=== PATIENT | female | born 1965 | race Caucasian/White ===

== ENCOUNTER 2022-03-17 02:58 | Inpatient (IN) ==
[2022-03-17] MEDS ORDERED: SODIUM CHLORIDE 0.9% 1000ML 500 ML IV ONE (03:20)
[2022-03-17] MEDS ORDERED: ONDANSETRON INJ 2 MG/ML 2 ML VIAL IV STA (03:20)
[2022-03-17] MEDS ORDERED: MoRPHine SULFATE 4 MG/ML 1 ML CARP\\VIAL IV STA ×2 (03:20→04:07)
--- NOTE | 2022-03-17 03:21 | Emergency Department Note ---
Impression & Plan Kidney stone ADMIT ED Provider Note HPI: The patient is a 56-year-old female who presents the emergency department the chief complaint of cute onset left flank pain that began about 3 hours prior to arrival to the ED. Patient states pain is relatively severe at times, she has had some nausea and vomiting. Patient states that this does feel similar to pain that she has had in the past with kidney stones. On arrival to the ED the patient is hemodynamically stable, she is in moderate distress secondary to pain on my initial assessment. ROS: -: L flank pain *10 point review systems was conducted and is otherwise negative unless stated above *Outpatient medications and allergy history reviewed PE: General: Alert, mild distress secondary to pain HEENT: Normocephalic, atraumatic Eyes: Extraocular eye movement is intact, no scleral erythema Pulmonary: Clear to auscultation bilaterally, no wheezing Cardio: Regular rate and rhythm GI: Abdomen is soft, nontender : No suprapubic tenderness, there is left flank tenderness to palpation MSK: No evidence of trauma or malformation of the extremities, no edema Skin: No evidence of rash Neuro: Alert, no focal deficits 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 Additional nonobstructing left renal calcifications. No other renal or ureteral calculi. Urinary bladder is unremarkable. OTHER FINDINGS: Normal ultrasound 06/02/2020. Small hiatal hernia. No bowel obstruction or ileus. Abundant stool throughout the colon. Appendix not identified. No secondary evidence for appendicitis. No evidence for diverticulitis. No free fluid. Liver is unremarkable. Gallbladder unremarkable without gallstones. No biliary ductal dilation. Pancreas is unremarkable. Spleen is unremarkable. Uterus is grossly unremarkable. Ovaries are not identified. Radiologist: Ascencion Alaniz M.D. Medical Decision Making: The patient is a 56-year-old female who presented to the emergency department chief complaint of cute onset left flank pain as well as nausea, patient stated pain felt similar to pain she has had in the past associated with kidney stones. CT imaging of the abdomen pelvis was obtained that shows evidence of a 6.4 mm obstructing calculus at the left UPJ with mild left hydronephrosis. Urinalysis shows blood and is positive for leukocyte Estrace, nitrite negative. There is pyuria but also evidence of contamination. We will send for urine culture, will also add blood cultures. Patient does have a mild leukocytosis, she will be started prophylactically on ciprofloxacin given her multiple antibiotic allergies. On my reassessment following 2 doses of morphine patient states her pain is improved but she is somewhat drowsy appearing. Discussed options and given the size of the stone and the patient's need for redosing of pain medication here in the ED, she will be admitted with urology consultation for further management. Case was discussed with on-call urology midlevel provider, Tanner Alfaro PA-C, recommended admission to medicine and urology consultation for the patient to be seen later this morning. Patient was in agreement to this plan, she was also given a dose of Toradol prior to admission. Patient was admitted in stable condition. [facility] Hospitalist service was consulted for admission. Diagnosis: 1. Kidney stone, left-sided, with hydronephrosis and obstruction 2. Urinary tract infection 3. Leukocytosis Disposition: Admission Zach Salas DO Emergency Medicine Past Med/Surg History Medical History (Updated 03/17/22 @ 05:34 by Zach Salas DO) Colon polyp Follicular thyroid cancer s/p thyroidectomy Heart trouble History of meningioma of the brain s/p gamma knife therapy Menopausal symptoms Status post stereotactic radiosurgery Urethral cyst Surgical History (Updated 02/24/20 @ 12:44 by Nica Salinas) History of subtotal thyroidectomy History of surgery on wrist Hx of breast biopsy Hx of colonoscopy Hx of knee surgery Hx of tonsillectomy Family History (Updated 06/15/20 @ 14:05 by Carolynn Rubio MD) Father Diabetes Hypertension Colorectal cancer questionable colon biopsies on colonoscopy Grandmother (Maternal) Diabetes Breast cancer Grandfather (Paternal) Malignant neoplasm of skin Prostate cancer Denies family history of Ovarian cancer Clotting disorder Uterine cancer Social History (Updated 02/24/20 @ 12:40 by Nica Salinas) Smoking Status: Never smoker Feels Safe at Home: Yes Allergies Allergies Allergy/AdvReac Type Severity Reaction Status Date / Time bacitracin [From Polysporin] Allergy RASH Verified 12/13/21 12:50 doxycycline Allergy Nausea & Verified 12/13/21 12:50 Vomitting erythromycin base Allergy Verified 12/13/21 12:50 fexofenadine [From Erika] Allergy Verified 12/13/21 12:50 hyoscyamine Allergy Rash Verified 12/13/21 12:50 iodine Allergy Verified 12/13/21 12:50 latex Allergy Verified 12/13/21 12:50 Penicillins Allergy Verified 12/13/21 12:50 polymyxin B [From Polysporin] Allergy RASH Verified 12/13/21 12:50 pseudoephedrine Allergy Verified 12/13/21 12:50 [From Erika-D] soy Allergy Verified 12/13/21 12:50 sulfamethoxazole Allergy RASH Verified 12/13/21 12:50 [From Bactrim] trimethoprim [From Bactrim] Allergy RASH Verified 12/13/21 12:50 milk AdvReac "Makes her Verified 12/13/21 12:50 sick" Home Meds Home Medications Medication Instructions Recorded Confirmed albuterol sulfate 2.5 mg/3 mL 2.5 mg inhalation Q4H PRN 10/24/21 12/13/21 (0.083 %) solution for nebulization albuterol sulfate 90 mcg/actuation 2 puff inhalation Q6H PRN 10/24/21 12/13/21 aerosol inhaler bupropion HCl 150 mg 24 hr tablet, 150 mg PO QAM 10/24/21 12/13/21 extended release econazole 1 % topical cream 1 applic topical DAILY 10/24/21 12/13/21 epinephrine 0.3 mg/0.3 mL 0.3 mg IM Q4H PRN 10/24/21 12/13/21 injection, auto-injector (EpiPen) levothyroxine 175 mcg tablet 175 mcg PO DAILY 10/24/21 12/13/21 (Synthroid) liothyronine 5 mcg tablet 5 mcg PO DAILY 10/24/21 12/13/21 metoprolol tartrate 25 mg tablet 25 mg PO DAILY 10/24/21 12/13/21 metronidazole 500 mg tablet 500 mg PO DAILY 10/24/21 12/13/21 ondansetron HCl 4 mg tablet 4 mg PO Q6H 10/24/21 12/13/21 Previous Rx's Medication Instructions Recorded azelastine 137 mcg (0.1 %) nasal 2 spray intranasal DAILY #30 mL 12/13/21 spray aerosol Results & Data (ED) Vital Signs Vital Signs - 24 hr 03/17/22 03:07 03/17/22 03:19 03/17/22 03:01 Temperature 37 C Temperature Source Temporal Artery Scan Pulse Rate 71 Respiratory Rate 20 Respiratory Effort / Characteristics Non-Labored Spontaneous Non-Labored Respiratory Depth Normal Normal Blood Pressure 141/73 H Blood Pressure Mean 95 Blood Pressure Position Sitting Pulse Oximetry 97 98 Oxygen Delivery Method Room Air Sepsis Recent Fever Within 48 Hours No Sepsis New/Unexplained Change in Mental Status N/A Sepsis Action Taken by Nursing No Action Required Laboratory Data Result diagrams: 03/17/22 03:25 03/17/22 03:25 Lab Results 03/17/22 03/17/22 03/17/22 Range/Units 03:25 03:25 03:25 WBC 11.14 H (4.8-10.8) K/ul RBC 4.32 (3.93-5.22) M/uL Hgb 12.6 (12.0-16.0) g/dl Hct 36.9 (34.1-44.9) % MCV 85.4 (80.0-100.0) fL MCH 29.2 (25.0-34.0) pg MCHC 34.1 (32.0-36.0) g/dL RDW Std Deviation 37.1 (36.4-46.3) fL RDW Coeff of Sulaiman 11.9 (11.5-14.5) % Plt Count 400 (130-400) K/uL MPV 9.6 (9.4-12.3) fL Immature Gran % (Auto) 0.3 % Neut % (Auto) 68.2 % Lymph % (Auto) 24.2 % [place] % (Auto) 6.3 % Eos % (Auto) 0.6 % Baso % (Auto) 0.4 % Neut # (Auto) 7.60 H (1.4-6.5) K/uL Lymph # (Auto) 2.70 (1.2-3.4) K/uL [place] # (Auto) 0.70 (0.24-0.82) K/uL Eos # (Auto) 0.07 (0-0.50) K/uL Baso # (Auto) 0.04 (0-0.2) K/uL Immature Gran # (Auto) 0.03 H (0.00-0.02) K/uL Sodium 137 (136-145) mmol/L Potassium 3.4 L (3.5-5.1) mmol/L Chloride 104 (98-107) mmol/L Carbon Dioxide 23 (21-32) mmol/L Anion Gap 10 (3-11) BUN 14 (6-23) mg/dl Creatinine 0.93 (0.6-1.2) mg/dl Est Cr Clr Drug Dosing Not Reportable Est GFR ( Amer) 78.5 ml/min Est GFR (Non-Af Amer) 67.7 ml/min BUN/Creatinine Ratio 15.1 (10-20) Glucose 114 H (70-99(Fasting)) mg/dl Calcium 8.8 (8.5-10.1) mg/dl Total Bilirubin 0.4 (0.2-1.0) mg/dl AST 14 (13-39) U/L ALT 11 (7-52) U/L Alkaline Phosphatase 92 (34-104) U/L Total Protein 6.5 (6.0-8.3) gm/dl Albumin 4.0 (3.4-5.0) gm/dl Globulin 2.5 (2.5-4.0) gm/dl Albumin/Globulin Ratio 1.6 (0.9-2) Lipase 9 L (11-82) U/L Urine Color Yellow Urine Appearance Cloudy A (Clear) Urine pH 5.0 (4.5-7.5) Ur Specific Check 1.018 (1.000-1.030) Urine Protein 1+ H (Negative) Urine Glucose (UA) Negative (Negative) Urine Ketones Negative (Negative) Urine Blood 2+ H (Negative) Urine Nitrite Negative (Negative) Urine Bilirubin Negative (Negative) Urine Urobilinogen Negative (Negative) Ur Leukocyte Esterase 2+ H (Negative) Urine WBC (Auto) >30 H (0-5) /hpf Urine RBC (Auto) 10-30 H (0-4) /hpf U Hyaline Cast (Auto) 0 (0-5) /lpf U Epithel Cells (Auto) >30 H (0-5) /lpf Urine Bacteria (Auto) Negative (Negative) Administered Medications Discontinued Medications Sodium Chloride (Nss 1000ml) 500 mls @ 999 mls/hr IV .Q31M ONE Stop: 03/17/22 03:50 Last Admin: 03/17/22 03:37 Dose: 999 mls/hr Documented By: WESLEY Morphine Sulfate (Morphine Sulfate 4 Mg/Ml 1 Ml Carp\\Vial) 4 mg IV NOW STA Stop: 03/17/22 03:21 Last Admin: 03/17/22 03:37 Dose: 4 mg Documented By: WESLEY Morphine Sulfate (Morphine Sulfate 4 Mg/Ml 1 Ml Carp\\Vial) 4 mg IV NOW STA Stop: 03/17/22 04:08 Last Admin: 03/17/22 04:23 Dose: 4 mg Documented By: WESLEY Ondansetron HCl (Ondansetron Inj 2 Mg/Ml 2 Ml Vial) 4 mg IV NOW STA Stop: 03/17/22 03:21 Last Admin: 03/17/22 03:37 Dose: 4 mg Documented By: WESLEY Discharge Plan Visit Data Chief Complaint: Abdominal Pain Stated Complaint: KIDNEY STONE ED Provider: Zach Salas Discharge Problem: Kidney stone Patient Disposition: Admitted As Inpatient Forms Stand Alone Forms: [facility] Prescriptions Prescriptions: No Action albuterol sulfate 2.5 mg /3 mL (0.083 %) solution for nebulization 2.5 mg inhalation Q4H PRN albuterol sulfate 90 mcg/actuation HFA aerosol inhaler 2 puff inhalation Q6H PRN bupropion HCl 150 mg tablet extended release 24 hr 150 mg PO QAM econazole 1 % cream 1 applic topical DAILY epinephrine [EpiPen] 0.3 mg/0.3 mL auto-injector 0.3 mg IM Q4H PRN liothyronine 5 mcg tablet 5 mcg PO DAILY metoprolol tartrate 25 mg tablet 25 mg PO DAILY metronidazole 500 mg tablet 500 mg PO DAILY levothyroxine [Synthroid] 175 mcg tablet 175 mcg PO DAILY ondansetron HCl 4 mg tablet 4 mg PO Q6H azelastine 137 mcg (0.1 %) aerosol,spray 2 spray intranasal DAILY Qty: 30 11RF Referrals Referrals: Sabrina Thomson CRNP [Primary Care Provider] -
[2022-03-17 03:36] LABS: Basophils # (auto) 0.04 K/uL (0-0.2); Basophils % (auto) 0.4 %; Eosinophils # (auto) 0.07 K/uL (0-0.50); Eosinophils % (auto) 0.6 %; Hematocrit (blood only) 36.9 % (34.1-44.9); Hemoglobin 12.6 g/dl (12.0-16.0); Immature Granulocytes # (auto) 0.03 K/uL (0.00-0.02); Immature Granulocytes % (auto) 0.3 %; Lymphocytes % (auto) 24.2 %; Mean Corpuscular Hemoglobin 29.2 pg (25.0-34.0); Mean Corpuscular Hgb Conc 34.1 g/dL (32.0-36.0); Mean Corpuscular Volume 85.4 fL (80.0-100.0); Mean Platelet Volume 9.6 fL (9.4-12.3); Monocytes % (auto) 6.3 %; Neutrophils % (auto) 68.2 %; Platelet Count 400 K/uL (130-400); RDW Coefficient of Variation 11.9 % (11.5-14.5); RDW Standard Deviation 37.1 fL (36.4-46.3); Red Blood Count 4.32 M/uL (3.93-5.22); White Blood Count 11.14 K/ul (4.8-10.8)
[2022-03-17 03:40] LABS: Appearance Urine Cloudy (Clear); Bacteria Urine Automated Negative (Negative); Bilirubin Urine Negative (Negative); Blood Urine 2+ (Negative); Cast Urine Automated 0 /lpf (0-5); Color Urine Yellow; Epithelial Cell Urine Auto >30 /lpf (0-5); Glucose Urine UA Negative (Negative); Ketones Urine Negative (Negative); Leukocyte Esterase Urine 2+ (Negative); Nitrite Urine Negative (Negative); Protein Urine 1+ (Negative); Specific Gravity Urine 1.018 (1.000-1.030); Urobilinogen Urine Negative (Negative); WBC Urine Automated >30 /hpf (0-5)
[2022-03-17 04:01] LABS: Alanine Aminotransferase 11 U/L (7-52); Albumin Globulin Ratio 1.6 (0.9-2); Alkaline Phosphatase 92 U/L (34-104); Anion Gap 10 (3-11); Aspartate Aminotransferase 14 U/L (13-39); BUN Creatinine Ratio 15.1 (10-20); Bilirubin,Total 0.4 mg/dl (0.2-1.0); Blood Urea Nitrogen 14 mg/dl (6-23); Calcium 8.8 mg/dl (8.5-10.1); Carbon Dioxide 23 mmol/L (21-32); Chloride 104 mmol/L (98-107); Est GFR (African American) 78.5 ml/min; Est GFR (Non-African American) 67.7 ml/min; Globulin 2.5 gm/dl (2.5-4.0); Glucose 114 mg/dl (70-99(Fasting)); Lipase 9 U/L (11-82); Potassium 3.4 mmol/L (3.5-5.1); Sodium 137 mmol/L (136-145); Total Protein 6.5 gm/dl (6.0-8.3)
[2022-03-17] MEDS ORDERED: CIPROFLOXACIN / D5W 400 MG/200 ML BAG IV STA (05:26)
--- NOTE | 2022-03-17 05:45 | Urology Consultation ---
Date of Consultation March 17, 2022 Assessment & Plan (1) Kidney stone: I discussed with the treating emergency room physician and he is having the patient admitted on the hospitalist service. From a urology perspective we recommend proceeding as follows: Provide analgesics Provide antiemetics Provide IV fluid for hydration Due to concern for infected urine she has been placed empirically on ciprofloxacin. This should continue until patient's urine culture which has been sent is available and her antibiotics can be tailored further based on culture results Consideration should be given to adding Flomax for expulsive therapy Maintain n.p.o. status At the present time the patient is normotensive without tachycardia or fever. She only has a minimal leukocytosis and does not have acute kidney injury therefore an emergent urologic procedure is not required. She will be reassessed later this morning to determine if we will continue medical expulsive therapy or proceed with cystoscopy Supervising Physician Co-Signing Physician Notes Discussed patient with XOCHITL. Agree with plan. Due to concern for infected urine, patient will likely require stent placement today. She is currently stable so team will discuss stent placement later this morning with Dr. Marie. History of Present Illness Reason for Consultation: Nephrolithiasis History of Present Illness This is a 56-year-old female who presented to the emergency department secondary to left flank pain. Patient notes that she was in her usual state of health feeling fine yesterday when at approximately midnight last night she developed left-sided flank pain with some radiation to the front of her abdomen. She has had associated nausea and vomiting. She denies any fevers, shakes, or chills. The patient does note some intermittent dysuria. She denies any hematuria or urinary frequency. She says she has had kidney stones in the past but was able to pass them without any procedural intervention and thus has never had a cystoscopy or lithotripsy. 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 She says she is able to use an exercise bike several times a week without any issues. In addition the patient says that she has had a brain tumor for which she has undergone gamma knife treatment for. In the emergency department the patient was noted to have a 5.5 x 6.4 mm obstructing kidney stone (identified by CAT scan) at the left ureteropelvic junction with mild left hydronephrosis. There were some additional nonobstructing left renal calcifications. Labs include a CBC her white blood cell count was 11.1. Hemoglobin, hematocrit, and platelet count were normal. Chemistry profile showed sodium was normal. Potassium was 3.4. BUN and creatinine were both normal. Urinalysis showed cloudy appearing urine which was negative for nitrites. 2+ leukocyte esterase was noted along with greater than 30 white blood cells per high-power field. The specimen was negative for bacteria. At the time of my interview the patient was resting comfortably in bed and she was in no distress. Allergies Allergy/AdvReac Type Severity Reaction Status Date / Time bacitracin [From Polysporin] Allergy RASH Verified 12/13/21 12:50 doxycycline Allergy Nausea & Verified 12/13/21 12:50 Vomitting erythromycin base Allergy Verified 12/13/21 12:50 fexofenadine [From Erika] Allergy Verified 12/13/21 12:50 hyoscyamine Allergy Rash Verified 12/13/21 12:50 iodine Allergy Verified 12/13/21 12:50 latex Allergy Verified 12/13/21 12:50 Penicillins Allergy Verified 12/13/21 12:50 polymyxin B [From Polysporin] Allergy RASH Verified 12/13/21 12:50 pseudoephedrine Allergy Verified 12/13/21 12:50 [From Erika-D] soy Allergy Verified 12/13/21 12:50 sulfamethoxazole Allergy RASH Verified 12/13/21 12:50 [From Bactrim] trimethoprim [From Bactrim] Allergy RASH Verified 12/13/21 12:50 milk AdvReac "Makes her Verified 12/13/21 12:50 sick" Home Medications Medication Instructions Recorded Confirmed Type albuterol sulfate 2.5 mg/3 mL 2.5 mg inhalation Q4H PRN Wheezing 10/24/21 03/17/22 History (0.083 %) solution for nebulization albuterol sulfate 90 mcg/actuation 2 puff inhalation Q6H PRN Wheezing 10/24/21 03/17/22 History aerosol inhaler bupropion HCl 150 mg 24 hr tablet, 150 mg PO QAM 10/24/21 03/17/22 History extended release epinephrine 0.3 mg/0.3 mL 0.3 mg IM Q4H PRN Allergic Reaction 10/24/21 03/17/22 History injection, auto-injector (EpiPen) levothyroxine 175 mcg tablet 175 mcg PO DAILY 10/24/21 03/17/22 History (Synthroid) liothyronine 5 mcg tablet 5 mcg PO DAILY 10/24/21 03/17/22 History metoprolol tartrate 25 mg tablet 25 mg PO DAILY PRN Increased Heart 10/24/21 03/17/22 History Rate azelastine 137 mcg (0.1 %) nasal 2 spray intranasal DAILY #30 mL 12/13/21 03/17/22 Rx spray aerosol ciprofloxacin HCl 500 mg tablet 500 mg PO BID 5 days #10 tabs 03/18/22 Rx (Cipro) hydrocodone 5 mg-acetaminophen 325 1 tab PO Q6H PRN pain #15 tabs 03/18/22 Rx mg tablet oxybutynin chloride 5 mg tablet 5 mg PO BID PRN bladder pain/spasm 03/18/22 Rx #20 tabs phenazopyridine 200 mg tablet 200 mg PO TID PRN burning with 03/18/22 Rx (Pyridium) urination/bladder pain #20 tabs tamsulosin 0.4 mg capsule 0.4 mg PO QAM #30 caps 03/18/22 Rx Patient History Medical History Acquired hypothyroidism AVNRT (AV alyssa re-entry tachycardia) Colon polyp Follicular thyroid cancer s/p thyroidectomy History of meningioma of the brain s/p gamma knife therapy Left knee injury Menopausal symptoms Status post stereotactic radiosurgery Urethral cyst Surgical History History of subtotal thyroidectomy History of surgery on wrist Hx of breast biopsy Hx of colonoscopy Hx of knee surgery Hx of tonsillectomy Family History Father Diabetes Hypertension Colorectal cancer questionable colon biopsies on colonoscopy Grandmother (Maternal) Diabetes Breast cancer Grandfather (Paternal) Malignant neoplasm of skin Prostate cancer Mother , from complications after a fracture No problems noted. 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 - [employer] How many Children do You have: 1 Feels Safe at Home: Yes Assistive Devices: None Review of Systems Constitutional: no fever and no chills Eyes: + corrective lenses Ear, Nose, Mouth, Throat: no ear pain Respiratory: no cough and no dyspnea Cardiovascular: no chest pain Gastrointestinal: + abdominal pain (Radiating from left flank), + nausea and + vomiting Genitourinary: + dysuria and + flank pain (Left-sided); no urinary urgency Musculoskeletal: + back pain (Left flank) Integumentary: no rash Neurologic: no localized weakness Physical Exam Constitutional: WD/WN, vitals as above Eyes: Wears glasses ENMT: Ears: no hearing impairment and no external ear abnormality Oral mucosa are dry Neck: trachea midline Respiratory: normal respiratory effort, lungs clear to auscultation Cardiovascular: Rate/Rhythm: regular rate and regular rhythm Gastrointestinal (Abdomen): Abdomen is soft, nonrigid, nondistended. There is slight pain with palpation in the left hypogastric area as well as the left lower quadrant. No rebound tenderness or guarding. Musculoskeletal: No calf tenderness Skin: no rashes Neurologic: moves all extremities Psychiatric: A+Ox3, euthymic affect Genitourinary: + CVA tenderness (Mild CVA tenderness noted with percussion on the left side) Results & Data ([facility]) Vital Signs (Past 12 Hours) Vital Signs Temp Pulse Resp BP Pulse Ox O2 Del Method 03/17/22 03:19 98 03/17/22 03:07 37 C 71 20 141/73 H 97 Room Air PG Care Time/CCT Total # of Minutes Spent Total Time Spent with Patient: Total time spent is greater than 50% in coordination of care (as documented) at patient's floor/unit and/or counseling patient: Coding Level of Care Code 55937 Inpt Consult Level 5 Diagnoses Kidney stone N20.0
[2022-03-17] MEDS ORDERED: KETOROLAC TROMETHAMINE 15 MG/ML VIAL IV ONE (05:59)
--- NOTE | 2022-03-17 06:38 | CT Scan Report ---
CT OF THE ABDOMEN AND PELVIS WITHOUT CONTRAST CLINICAL HISTORY: Left flank pain. COMPARISON STUDY: Pelvic ultrasound June 15, 2020. Abdominal ultrasound June 02, 2020. Pelvis MRI April 24, 2019. TECHNIQUE: Axial images of the abdomen and pelvis were obtained without IV contrast. Images were revi ewed in the axial, sagittal, and coronal planes. Automated exposure control was utilized for the apryl dy. A dose lowering technique was utilized adhering to the principles of ALARA. FINDINGS: Lung bases are unremarkable. A 7 mm left ureteropelvic junction calculus results in mild to moderate left hydronephrosis. Adjacent left renal calculi measure up to 7 mm. Stranding within the l eft renal sinus and adjacent to the proximal left ureter is noted. No right sided urinary calculi are present. There is no right hydronephrosis. Evaluation of the remainder of the abdomen and pelvis is suboptimal on this unenhanced exam. There is a small hiatal hernia. Liver, spleen, adrenal glands and pancreas are unremarkable. No biliary or pancreatic ductal dilatation. No evidence for a bowel obstr uction. No lymphadenopathy or ascites. No acute fracture or suspicious lesion within visualized skele ce structures. IMPRESSION: 1. 7 mm left ureteropelvic junction calculus which results in mild to moderate left hydronephrosis. 2. Left-sided nephrolithiasis. ACT 112: Negative or not required by law. Electronically signed by: Reid Iqbal M.D. 03/17/2022 6:36 AM
--- NOTE | 2022-03-17 07:38 | History & Physical Report ---
Date of Service March 17, 2022 Assessment & Plan (1) Urinary tract obstruction by kidney stone: Plan: left-sided, 7mm, at the UPJ. patient already leaning towards wanting urological intervention. formal consult to [facility] Urology appreciated. additional nonobstructing stones on left also seen on CT. plan - * NPO except meds * copious IVF with isotonic saline * add KCL to fluids * dilaudid 0.25mg q6h prn * zofran prn * flomax 0.4mg daily, first dose now * strain all urine * u/a possibly suggestive of UTI - continue IV cipro q12h; follow urine cx * await recommendations from urology (2) AVNRT (AV alyssa re-entry tachycardia): Plan: history of. never has had ablation. takes metoprolol prn and has been previously instructed in use of carotid massage for episodes. place on telemetry. replace low K. (3) Acquired hypothyroidism: Plan: h/o thyroid cancer s/p thyroidectomy. cont synthroid. cont liothyronine. consider TSH check in am. (4) Hypokalemia: Plan: 2nd vomiting. mag level wnl. give KCL 40meq po x 1 now. add 20meq of KCL to IVF. repeat BMP am. telemetry. (5) DVT prophylaxis: Plan: low risk. ambulation. History of Present Illness Chief Complaint: left flank pain, left sided abd pain, nausea/vomiting Primary Care Provider: Sabrina Alix 56yo female with h/o AVNRT, acquired hypothyroidism, and previous kidney stones x 2 presents with severe left-sided abdominal pain and left flank pain beginning about 0030 early this am. This was associated with nausea and multiple episodes of vomiting. Some subjective fever/warmth but no rigors. Retrospectively she has had intermittent discomfort over the left flank/upper abdomen for about 2 months, with minor pain episodes occurring about every 3 days. Upon ER presentation she underwent CT abd/pelvis showing a 7mm left-sided obstructing kidney stone at the UPJ. She is more comfortable following multiple doses of morphine. Of note - she spontaneously passed 2 prior stones that were calcium based. She has never needed stents or lithotripsy. Allergies Allergy/AdvReac Type Severity Reaction Status Date / Time bacitracin [From Polysporin] Allergy RASH Verified 12/13/21 12:50 doxycycline Allergy Nausea & Verified 12/13/21 12:50 Vomitting erythromycin base Allergy Verified 12/13/21 12:50 fexofenadine [From Erika] Allergy Verified 12/13/21 12:50 hyoscyamine Allergy Rash Verified 12/13/21 12:50 iodine Allergy Verified 12/13/21 12:50 latex Allergy Verified 12/13/21 12:50 Penicillins Allergy Verified 12/13/21 12:50 polymyxin B [From Polysporin] Allergy RASH Verified 12/13/21 12:50 pseudoephedrine Allergy Verified 12/13/21 12:50 [From Erika-D] soy Allergy Verified 12/13/21 12:50 sulfamethoxazole Allergy RASH Verified 12/13/21 12:50 [From Bactrim] trimethoprim [From Bactrim] Allergy RASH Verified 12/13/21 12:50 milk AdvReac "Makes her Verified 12/13/21 12:50 sick" Home Medications Medication Instructions Recorded Confirmed Type albuterol sulfate 2.5 mg/3 mL 2.5 mg inhalation Q4H PRN Wheezing 10/24/21 03/17/22 History (0.083 %) solution for nebulization albuterol sulfate 90 mcg/actuation 2 puff inhalation Q6H PRN Wheezing 10/24/21 03/17/22 History aerosol inhaler bupropion HCl 150 mg 24 hr tablet, 150 mg PO QAM 10/24/21 03/17/22 History extended release epinephrine 0.3 mg/0.3 mL 0.3 mg IM Q4H PRN Allergic Reaction 10/24/21 03/17/22 History injection, auto-injector (EpiPen) levothyroxine 175 mcg tablet 175 mcg PO DAILY 10/24/21 03/17/22 History (Synthroid) liothyronine 5 mcg tablet 5 mcg PO DAILY 10/24/21 03/17/22 History metoprolol tartrate 25 mg tablet 25 mg PO DAILY PRN Increased Heart 10/24/21 03/17/22 History Rate azelastine 137 mcg (0.1 %) nasal 2 spray intranasal DAILY #30 mL 12/13/21 03/17/22 Rx spray aerosol Past Med/Surg History Medical History (Updated 03/17/22 @ 08:46 by Roshan Garces) Acquired hypothyroidism AVNRT (AV alyssa re-entry tachycardia) Colon polyp Follicular thyroid cancer s/p thyroidectomy History of meningioma of the brain s/p gamma knife therapy Left knee injury Menopausal symptoms Status post stereotactic radiosurgery Urethral cyst Surgical History History of subtotal thyroidectomy History of surgery on wrist Hx of breast biopsy Hx of colonoscopy Hx of knee surgery Hx of tonsillectomy Family History (Updated 03/17/22 @ 08:42 by Roshan Garces) Father Diabetes Hypertension Colorectal cancer questionable colon biopsies on colonoscopy Grandmother (Maternal) Diabetes Breast cancer Grandfather (Paternal) Malignant neoplasm of skin Prostate cancer Mother , from complications after a fracture No problems noted. 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 - [employer] How many Children do You have: 1 Feels Safe at Home: Yes Review of Systems Review of Systems: gen - subjective fever/warmth overnight, no rigors; recent appetite wnl eyes - no visual changes HENT - no dysphagia, chronic nasal symptoms CV - no chest pain pulm - no cough, no dyspnea GI - abdominal pain per HPI; +N/V; no blood in stool - no hematuria; no dysuria; +left flank pain musculo - left knee pain/swelling; wearing brace; recently saw orthopedics neuro - no headache skin - no rash endo - no diabetes Physical Exam Physical Exam: gen - pleasant, NAD eyes - PERRL HENT - mouth - MM dry neck - no JVD, no masses heart - sinus negro, s1 s2, no murmur lungs - CTA b/l abd - mild left flank and LUQ tenderness to palpation; no peritoneal signs; BS+; no HSM ext - trace edema left foot; pulses 2+ b/l skin - no rash neuro - strength 5/5 x 4 exts; DTRs 2+ b/l musculo - left knee brace in place psych - a/o x 3 Results & Data Results & Data ([facility]) Vital Signs (Past 12 Hours) Vital Signs Temp Pulse Pulse Resp BP BP Pulse Ox 03/17/22 07:00 78 16 116/62 94 03/17/22 05:00 03/17/22 03:19 98 03/17/22 03:07 37 C 71 20 141/73 H 97 O2 Del Method 03/17/22 07:00 Room Air 03/17/22 05:00 Room Air 03/17/22 03:19 03/17/22 03:07 Room Air Laboratory Results Laboratory Results - last 24 hr 03/17/22 03/17/22 03/17/22 03:25 03:25 03:25 WBC 11.14 H RBC 4.32 Hgb 12.6 Hct 36.9 MCV 85.4 MCH 29.2 MCHC 34.1 RDW Std Deviation 37.1 RDW Coeff of Sulaiman 11.9 Plt Count 400 MPV 9.6 Immature Gran % (Auto) 0.3 Neut % (Auto) 68.2 Lymph % (Auto) 24.2 [place] % (Auto) 6.3 Eos % (Auto) 0.6 Baso % (Auto) 0.4 Neut # (Auto) 7.60 H Lymph # (Auto) 2.70 [place] # (Auto) 0.70 Eos # (Auto) 0.07 Baso # (Auto) 0.04 Immature Gran # (Auto) 0.03 H Sodium 137 Potassium 3.4 L Chloride 104 Carbon Dioxide 23 Anion Gap 10 BUN 14 Creatinine 0.93 Est Cr Clr Drug Dosing Not Reportable Est GFR ( Amer) 78.5 Est GFR (Non-Af Amer) 67.7 BUN/Creatinine Ratio 15.1 Glucose 114 H Calcium 8.8 Magnesium Total Bilirubin 0.4 AST 14 ALT 11 Alkaline Phosphatase 92 Total Protein 6.5 Albumin 4.0 Globulin 2.5 Albumin/Globulin Ratio 1.6 Lipase 9 L Urine Color Yellow Urine Appearance Cloudy A Urine pH 5.0 Ur Specific [place] 1.018 Urine Protein 1+ H Urine Glucose (UA) Negative Urine Ketones Negative Urine Blood 2+ H Urine Nitrite Negative Urine Bilirubin Negative Urine Urobilinogen Negative Ur Leukocyte Esterase 2+ H Urine WBC (Auto) >30 H Urine RBC (Auto) 10-30 H U Hyaline Cast (Auto) 0 U Epithel Cells (Auto) >30 H Urine Bacteria (Auto) Negative SARS-CoV-2, RNA, NAAT 03/17/22 03/17/22 03:25 05:40 WBC RBC Hgb Hct MCV MCH MCHC RDW Std Deviation RDW Coeff of Sulaiman Plt Count MPV Immature Gran % (Auto) Neut % (Auto) Lymph % (Auto) [place] % (Auto) Eos % (Auto) Baso % (Auto) Neut # (Auto) Lymph # (Auto) [place] # (Auto) Eos # (Auto) Baso # (Auto) Immature Gran # (Auto) Sodium Potassium Chloride Carbon Dioxide Anion Gap BUN Creatinine Est Cr Clr Drug Dosing Est GFR ( Amer) Est GFR (Non-Af Amer) BUN/Creatinine Ratio Glucose Calcium Magnesium 2.0 Total Bilirubin AST ALT Alkaline Phosphatase Total Protein Albumin Globulin Albumin/Globulin Ratio Lipase Urine Color Urine Appearance Urine pH Ur Specific [place] Urine Protein Urine Glucose (UA) Urine Ketones Urine Blood Urine Nitrite Urine Bilirubin Urine Urobilinogen Ur Leukocyte Esterase Urine WBC (Auto) Urine RBC (Auto) U Hyaline Cast (Auto) U Epithel Cells (Auto) Urine Bacteria (Auto) SARS-CoV-2, RNA, NAAT NEGATIVE Diagnostic Findings Abdomen/Pelvis CT 03/17/22 03:19 CT OF THE ABDOMEN AND PELVIS WITHOUT CONTRAST CLINICAL HISTORY: Left flank pain. COMPARISON STUDY: Pelvic ultrasound June 15, 2020. Abdominal ultrasound June 02, 2020. Pelvis MRI April 24, 2019. TECHNIQUE: Axial images of the abdomen and pelvis were obtained without IV contrast. Images were reviewed in the axial, sagittal, and coronal planes. Automated exposure control was utilized for the study. A dose lowering technique was utilized adhering to the principles of ALARA. FINDINGS: Lung bases are unremarkable. A 7 mm left ureteropelvic junction calculus results in mild to moderate left hydronephrosis. Adjacent left renal calculi measure up to 7 mm. Stranding within the left renal sinus and adjacent to the proximal left ureter is noted. No right sided urinary calculi are present. There is no right hydronephrosis. Evaluation of the remainder of the abdomen and pelvis is suboptimal on this unenhanced exam. There is a small hiatal hernia. Liver, spleen, adrenal glands and pancreas are unremarkable. No biliary or pancreatic ductal dilatation. No evidence for a bowel obstruction. No lymphadenopathy or ascites. No acute fracture or suspicious lesion within visualized skeletal structures. IMPRESSION: 1. 7 mm left ureteropelvic junction calculus which results in mild to moderate left hydronephrosis. 2. Left-sided nephrolithiasis. ACT 112: Negative or not required by law. Electronically signed by: Reid Iqbal M.D. 03/17/2022 6:36 AM Code Status & VTE Plan Code Status full code PG Care Time/CCT Total # of Minutes Spent Total Time Spent with Patient: Total time spent is greater than 50% in coordination of care (as documented) at patient's floor/unit and/or counseling patient: Coding Level of Care Code 17295 Initial Inpt Care Lvl 2 Diagnoses Urinary tract obstruction by kidney stone N20.0; N13.8 AVNRT (AV alyssa re-entry tachycardia) I47.1 Acquired hypothyroidism E03.9 Hypokalemia E87.6 DVT prophylaxis Z29.9
[2022-03-17] MEDS ORDERED: PROMETHAZINE 12.5 MG/50.5 ML BAG IV STA (07:53)
[2022-03-17] MEDS: TAMSULOSIN HCL 0.4 MG CAP PO ONE ×2 (08:04→14:06)
[2022-03-17] MEDS: POTASSIUM CHLORIDE CRTAB 20 MEQ TABCR PO STA ×2 (08:04→14:06)
[2022-03-17] MEDS: NSS + 20MEQ KCL 20 MEQ/1,000 ML BAG IV SCH ×2 (08:30→15:52)
[2022-03-17] MEDS ORDERED: PROPOFOL IV EMULSION 10 MG/ML 20 ML VIAL IV ONE (09:36)
[2022-03-17] MEDS ORDERED: ONDANSETRON INJ 2 MG/ML 2 ML VIAL ONE (09:36)
[2022-03-17] MEDS ORDERED: GLYCOPYRROLATE 0.2 MG/ML VIAL ONE (09:36)
[2022-03-17] MEDS ORDERED: MIDAZOLAM HCL 1 MG/ML 2ML VIAL ONE (09:36)
[2022-03-17] MEDS ORDERED: KETAMINE 50 MG/5 ML SYRINGE ONE (09:36)
[2022-03-17] MEDS ORDERED: fentaNYL citrate 100 MCG/2 ML VIAL ONE (09:36)
--- NOTE | 2022-03-17 09:49 | Anesthesiology Consultation ---
Date of Service March 17, 2022 Assessment & Plan (1) Encounter for pre-operative examination: Chart Review Chart Review: Acceptable Risk for Surgery History Surgery Operation Date: 03/17/22 10:00 Proposed Procedures p Cystoscopy Left Stent - Cristian Marie DO Allergies Allergy/AdvReac Type Severity Reaction Status Date / Time bacitracin [From Polysporin] Allergy RASH Verified 12/13/21 12:50 doxycycline Allergy Nausea & Verified 12/13/21 12:50 Vomitting erythromycin base Allergy Verified 12/13/21 12:50 fexofenadine [From Erika] Allergy Verified 12/13/21 12:50 hyoscyamine Allergy Rash Verified 12/13/21 12:50 iodine Allergy Verified 12/13/21 12:50 latex Allergy Verified 12/13/21 12:50 Penicillins Allergy Verified 12/13/21 12:50 polymyxin B [From Polysporin] Allergy RASH Verified 12/13/21 12:50 pseudoephedrine Allergy Verified 12/13/21 12:50 [From Erika-D] soy Allergy Verified 12/13/21 12:50 sulfamethoxazole Allergy RASH Verified 12/13/21 12:50 [From Bactrim] trimethoprim [From Bactrim] Allergy RASH Verified 12/13/21 12:50 milk AdvReac "Makes her Verified 12/13/21 12:50 sick" Medications Home Medications Medication Instructions Recorded Confirmed Last Taken albuterol sulfate 2.5 mg/3 mL 2.5 mg inhalation Q4H PRN Wheezing 10/24/21 03/17/22 Unknown (0.083 %) solution for nebulization albuterol sulfate 90 mcg/actuation 2 puff inhalation Q6H PRN Wheezing 10/24/21 03/17/22 Unknown aerosol inhaler bupropion HCl 150 mg 24 hr tablet, 150 mg PO QAM 10/24/21 03/17/22 1 Day Ago extended release ~03/16/22 epinephrine 0.3 mg/0.3 mL 0.3 mg IM Q4H PRN Allergic Reaction 10/24/21 03/17/22 Unknown injection, auto-injector (EpiPen) levothyroxine 175 mcg tablet 175 mcg PO DAILY 10/24/21 03/17/22 1 Day Ago (Synthroid) ~03/16/22 liothyronine 5 mcg tablet 5 mcg PO DAILY 10/24/21 03/17/22 1 Day Ago ~03/16/22 metoprolol tartrate 25 mg tablet 25 mg PO DAILY PRN Increased Heart 10/24/21 03/17/22 Unknown Rate azelastine 137 mcg (0.1 %) nasal 2 spray intranasal DAILY #30 mL 12/13/21 03/17/22 Unknown spray aerosol Active Medications Generic Name Dose Route Start Last Admin Trade Name Freq PRN Reason Stop Dose Admin Potassium Chloride/Sodium Chloride 20 meq in 1,000 mls @ 125 mls/hr 03/17/22 07:45 03/17/22 08:30 Normal Saline W/20 Meq Kcl IV 04/16/22 07:44 125 mls/hr .Q8H KINDRA Administration Protocol Past Medical History Medical History Acquired hypothyroidism AVNRT (AV alyssa re-entry tachycardia) Colon polyp Follicular thyroid cancer s/p thyroidectomy History of meningioma of the brain s/p gamma knife therapy Left knee injury Menopausal symptoms Status post stereotactic radiosurgery Urethral cyst Past Family History Family History Father Diabetes Hypertension Colorectal cancer questionable colon biopsies on colonoscopy Grandmother (Maternal) Diabetes Breast cancer Grandfather (Paternal) Malignant neoplasm of skin Prostate cancer Mother , from complications after a fracture No problems noted. Denies family history of Ovarian cancer Clotting disorder Kidney stones Uterine cancer Past Surgical History Surgical History History of subtotal thyroidectomy History of surgery on wrist Hx of breast biopsy Hx of colonoscopy Hx of knee surgery Hx of tonsillectomy Social History Smoking Status: Never smoker Hx Alcohol Use: No Physical Exam Vital Signs Last Vital Signs Temp 37 C 03/17/22 03:07 Pulse 57 L 03/17/22 09:34 Resp 17 03/17/22 09:34 BP 138/67 03/17/22 09:34 Pulse Ox 94 03/17/22 09:34 O2 Del Method 03/17/22 09:34 Testing Laboratory Results 03/17/22 03:25 03/17/22 03:25 Urine Color Yellow 03/17/22 03:25 Urine Appearance Cloudy (Clear) A 03/17/22 03:25 Urine pH 5.0 (4.5-7.5) 03/17/22 03:25 Ur Specific [place] 1.018 (1.000-1.030) 03/17/22 03:25 Urine Protein 1+ (Negative) H 03/17/22 03:25 Urine Glucose (UA) Negative (Negative) 03/17/22 03:25 Urine Ketones Negative (Negative) 03/17/22 03:25 Urine Nitrite Negative (Negative) 03/17/22 03:25 Ur Leukocyte Esterase 2+ (Negative) H 03/17/22 03:25 Urine WBC (Auto) >30 /hpf (0-5) H 03/17/22 03:25 Urine RBC (Auto) 10-30 /hpf (0-4) H 03/17/22 03:25 U Hyaline Cast (Auto) 0 /lpf (0-5) 03/17/22 03:25 U Epithel Cells (Auto) >30 /lpf (0-5) H 03/17/22 03:25 Urine Bacteria (Auto) Negative (Negative) 03/17/22 03:25
--- NOTE | 2022-03-17 09:52 | Urology Progress Note ---
Date of Service March 17, 2022 Assessment & Plan (1) Left ureteral calculus: (2) Hydronephrosis: (3) Renal colic: Plan 56yo F admitted with intractable left flank pain and nausea secondary to an obstructing 7 mm left UPJ stone Plan of care and imaging reviewed with Dr. Marie, on-call urologist. Afebrile and hemodynamically stable. Labs reviewed -mild leukocytosis, renal function normal. Urine culture pending, on IV cipro q12h; follow urine cx Discussed acute stone management with cystoscopy and stent placement. Ureteral stents were discussed as well as postoperative issues and pain management. Discussed that she will need a second procedure for stone treatment in the future. Risks and benefits were discussed. Patient agreeable to proceeding with stent placement today. All questions were answered. Will plan to proceed to the OR today for cystoscopy, left retrograde pyelogram, left ureteral stent placement with Dr. Marie. Risks and benefits reviewed with patient by Dr. Marie. OR notified. COVID test negative. Covered with scheduled IV ciprofloxacin. Keep NPO. Continue tamsulosin, prn analgesics, prn antiemetics. Urology will follow. ATTENDING NOTE: Independently assessed, examined, interviewed, and evaluated. Agree with above. Patient continues to have considerable issues with stone due to obstruction. Has left-sided UPJ stone with hydronephrosis. Patient had previously been seen by urology for issues related to urethral carbuncle versus cystic lesion with urethral issues. Discussed findings and concerns. Discussed risks and benefits of intervention. Discussed possible options including observation and expulsion therapy. Patient has been hydrating. Is currently NPO. Risks and benefits discussed at length for procedure. These include bleeding, infection, injury to surrounding tissues or organs, and risks associated with anesthesia. Patient states understanding and agrees to proceed. Will sign consent and proceed with Cystoscopy and left stent placement Subjective Patient examined at bedside this AM in the ED. Awake, resting in bed on arrival. Still with left flank pain, managing with IV pain medication. Some nausea and vomiting. Voiding without issue, no hematuria or dysuria. Has been NPO. Review of Systems Constitutional: as per Subjective / HPI Gastrointestinal: as per Subjective / HPI Genitourinary: as per Subjective / HPI Physical Exam Constitutional: no acute distress and + uncomfortable Respiratory: no respiratory distress and no labored breathing Neurologic: awake Psychiatric: Orientation: alert, oriented x 3 and cooperative Genitourinary: + CVA tenderness (Left sided) Results & Data ([facility]) Vital Signs (Past 12 Hours) Vital Signs Temp Pulse Pulse Resp BP BP Pulse Ox 03/17/22 09:34 57 L 17 138/67 94 03/17/22 09:00 53 L 16 117/63 95 03/17/22 08:05 52 L 16 105/69 96 03/17/22 07:00 78 16 116/62 94 03/17/22 05:00 03/17/22 03:19 98 03/17/22 03:07 37 C 71 20 141/73 H 97 O2 Del Method 03/17/22 09:34 Room Air 03/17/22 09:00 Room Air 03/17/22 08:05 Room Air 03/17/22 07:00 Room Air 03/17/22 05:00 Room Air 03/17/22 03:19 03/17/22 03:07 Room Air PG Care Time/CCT Total # of Minutes Spent Total Time Spent with Patient: Total time spent is greater than 50% in coordination of care (as documented) at patient's floor/unit and/or counseling patient: Coding Level of Care Code None Diagnoses Left ureteral calculus N20.1 Hydronephrosis N13.30 Renal colic N23
[2022-03-17] MEDS ORDERED: ATROPINE SULFATE 0.1 MG/ML 10ML SYR IV PRN (10:08)
[2022-03-17] MEDS ORDERED: ONDANSETRON INJ 2 MG/ML 2 ML VIAL IV PRN ×2 (10:08→12:14)
[2022-03-17] MEDS ORDERED: PROMETHAZINE HCL 6.25 MG in SODIUM CHLORIDE 0.9% 50 ML IV PRN (10:08)
[2022-03-17] MEDS ORDERED: fentaNYL citrate 100 MCG/2 ML VIAL IV PRN (10:08)
[2022-03-17] MEDS ORDERED: DIATRIZOATE MEGLUMINE 30% 100ML VIAL INSTIL ONE (10:27)
--- NOTE | 2022-03-17 10:43 | Operative Report ---
PG Post Operative Report Pre & Post Diagnosis Operation Date: 03/17/22 10:00 Pre-Op Diagnosis: Left Kidney Stone Post-Op Diagnosis: Left Kidney Stone I identified the patient and participated in the time-out.: Yes Procedure Operation Date: 03/17/22 10:00 Actual Procedures p Cystoscopy with Left Retrograde Pyelogram, Left Stent Insertion(Left) - Cristian Marie DO Surgeon Cristian Marie, II, DO Teaching Music Lessons None Estimated Blood Loss 0 Findings Consistent with Post-Op Diagnosis Stent placed in good position. Vaginal vs Urethral cystic lesion near meatus. Specimens None Drains 6 Fr Multilength Anesthesia Type MAC Complications none Disposition Disposition: Recovery Room Indications Patient with obstruction. Risks and benefits discussed at length. Description of Procedure Patient was consented and brought back to the operating room. Patient was placed under anesthesia in the supine position and moved to the dorsal lithotomy position. Patient was prepped and draped in the regular sterile fashion. A time out was completed. A 30degree Cystoscope was placed into the bladder and the entire bladder was examined. The UO's were identified. The UO was cannulized with a catheter and a retrograde pyelogram was completed. A wire was then placed. With the wire in place, a 6 Fr Double J stent was placed. It was confirmed with fluoroscopy. With the stent in place, the bladder was emptied. The scope was removed. The patient was cleaned, aroused from anesthesia, and transferred to the pacu in stable condition having tolerated the procedure well with no complications. I was present and participated in all aspects of the procedure. The patient will be monitored in the PACU until transferred. Will need treatment of stone. Will need to discuss options for urethral vs vaginal cyst. Plan followup in 1-2 weeks to discuss options. I attest to the content of the Intraoperative Record and any orders documented therein. Any exceptions are noted below.
--- NOTE | 2022-03-17 10:54 | Fluoroscopy Report ---
FL retrograde includes kub CLINICAL HISTORY: CYSTO COMPARISON STUDY: CT of the abdomen and pelvis performed earlier today. FLUOROSCOPY TIME: 16 seconds. FLUOROSCOPIC IMAGES: 2 FINDINGS: Fluoroscopy was provided during left retrograde exam with left ureteral stent placement. St ent is appropriately positioned. Equivocal extraluminal contrast adjacent to the proximal left ureter . IMPRESSION: Fluoroscopy provided during left retrograde exam with left ureteral stent placement. ACT 112: Negative or not required by law. Electronically signed by: Reid Iqbal M.D. 03/17/2022 10:53 AM
--- NOTE | 2022-03-17 11:29 | Anesthesiology Progress Note ---
Date of Service March 17, 2022 Anesthesia Post Procedure Vital Signs Vital Signs: Temp Pulse Pulse Resp BP BP Pulse Ox 03/17/22 11:05 102 H 12 121/74 98 03/17/22 11:25 98 H 13 128/68 96 03/17/22 11:15 36.6 C 98 H 16 136/75 99 03/17/22 10:55 105 H 12 131/74 97 03/17/22 10:48 36.7 C 108 H 14 97/80 L 94 03/17/22 09:56 36.8 C 63 20 128/64 99 03/17/22 09:34 57 L 17 138/67 94 03/17/22 09:00 53 L 16 117/63 95 03/17/22 08:05 52 L 16 105/69 96 03/17/22 07:00 78 16 116/62 94 03/17/22 05:00 03/17/22 03:19 98 03/17/22 03:07 37 C 71 20 141/73 H 97 O2 Del Method O2 Flow Rate 03/17/22 11:05 Oxymask 7 03/17/22 11:25 Room Air 0 03/17/22 11:15 Oxymask 4 03/17/22 10:55 Oxymask 7 03/17/22 10:48 Oxymask 7 03/17/22 09:56 Room Air 03/17/22 09:34 Room Air 03/17/22 09:00 Room Air 03/17/22 08:05 Room Air 03/17/22 07:00 Room Air 03/17/22 05:00 Room Air 03/17/22 03:19 03/17/22 03:07 Room Air Pain Intensity Left Abdomen: Pain Intensity: 2 Transfer of Care Handoff Completed per policy Notes Mental Status: alert / awake / arousable Patient Amnestic to Procedure: Yes Nausea / Vomiting: adequately controlled Pain: adequately controlled Airway Patency, RR, SpO2: stable & adequate BP & HR: stable & adequate Hydration State: stable & adequate Anesthetic Complications: no major complications apparent
[2022-03-17] MEDS ORDERED: METOPROLOL TARTRATE 25 MG TAB PO PRN (12:14)
[2022-03-17] MEDS ORDERED: ALBUTEROL 0.083% NEBU SOLN 3 ML VIAL INH PRN (12:14)
[2022-03-17] MEDS ORDERED: ALBUTEROL HFA 8 GM INHALER INH PRN (12:14)
[2022-03-17] MEDS ORDERED: HYDROmorphone INJ 0.5 MG/0.5 ML SYR IV PRN (12:14)
[2022-03-17] MEDS ORDERED: Patient's HEIGHT &/or WEIGHT Needed SCH (12:22)
[2022-03-17] MEDS ORDERED: EPINEPHrine INJ 1 MG/ML AMP IM PRN (12:42)
[2022-03-17] MEDS ORDERED: LEVOTHYROXINE SODIUM 175 MCG TABLET PO ONE (13:00)
[2022-03-17] MEDS: buPROPion XL 150 MG TABCR PO SCH (13:14)
[2022-03-17] MEDS: LIOTHYRONINE SODIUM 5 MCG TAB PO SCH (13:22)
[2022-03-17] MEDS: AZELASTINE HCL 0.1% NASAL 200 SPRAYS/27,400 MCG BTL SCH (13:23)
[2022-03-17] MEDS: ACETAMINOPHEN 325 MG TAB PO PRN (17:22)
[2022-03-17] MEDS ORDERED: OXYBUTYNIN CHLORIDE 5 MG TAB PO STA (17:31)
[2022-03-17] MEDS ORDERED: PHENAZOPYRIDINE HCL 200 MG TAB PO STA (17:31)
[2022-03-17] MEDS ORDERED: OXYBUTYNIN CHLORIDE 5 MG TAB PO PRN (20:32)
[2022-03-17] MEDS ORDERED: HYDROCODONE/ACETAMOPHEN 5/325MG TAB PO PRN (20:32)
[2022-03-17] MEDS ORDERED: PHENAZOPYRIDINE HCL 200 MG TAB PO PRN (20:32)
[2022-03-17] MEDS: CIPROFLOXACIN / D5W 400 MG/200 ML BAG IV SCH (22:04)
[2022-03-18] MEDS: NSS + 20MEQ KCL 20 MEQ/1,000 ML BAG IV SCH ×2 (00:19→09:32)
[2022-03-18] MEDS: LIOTHYRONINE SODIUM 5 MCG TAB PO SCH (06:10)
[2022-03-18] MEDS ORDERED: LEVOTHYROXINE SODIUM 175 MCG TABLET PO SCH (06:30)
[2022-03-18 07:48] LABS: Calcium 8.1 mg/dl (8.5-10.1); Creatinine Clr Calc Pharmacy 60.6 ml/min; Est GFR (African American) 77.5 ml/min; Est GFR (Non-African American) 66.9 ml/min; Potassium 4.7 mmol/L (3.5-5.1)
[2022-03-18 08:30] LABS: Hematocrit (blood only) 34.6 % (34.1-44.9); Hemoglobin 11.1 g/dl (12.0-16.0); Mean Corpuscular Hemoglobin 29.3 pg (25.0-34.0); Mean Corpuscular Hgb Conc 32.1 g/dL (32.0-36.0); Mean Corpuscular Volume 91.3 fL (80.0-100.0); Platelet Count 342 K/uL (130-400); RDW Coefficient of Variation 12.2 % (11.5-14.5); RDW Standard Deviation 40.8 fL (36.4-46.3); Red Blood Count 3.79 M/uL (3.93-5.22); White Blood Count 7.73 K/ul (4.8-10.8)
[2022-03-18] MEDS: CIPROFLOXACIN / D5W 400 MG/200 ML BAG IV SCH (08:41)
[2022-03-18] MEDS: AZELASTINE HCL 0.1% NASAL 200 SPRAYS/27,400 MCG BTL SCH (08:43)
[2022-03-18] MEDS: buPROPion XL 150 MG TABCR PO SCH (08:44)
[2022-03-18] MEDS: ACETAMINOPHEN 325 MG TAB PO PRN (08:49)
[2022-03-18] MEDS ORDERED: TAMSULOSIN HCL 0.4 MG CAP PO SCH (09:00)
--- NOTE | 2022-03-18 13:06 | Discharge Summary ---
Date of Service date of admission - March 17, 2022 date of discharge - March 18, 2022 Admission HPI Per Admitting Provider 56yo female with h/o AVNRT, acquired hypothyroidism, and previous kidney stones x 2 presents with severe left-sided abdominal pain and left flank pain beginning about 0030 early this am. This was associated with nausea and multiple episodes of vomiting. Some subjective fever/warmth but no rigors. Retrospectively she has had intermittent discomfort over the left flank/upper abdomen for about 2 months, with minor pain episodes occurring about every 3 days. Upon ER presentation she underwent CT abd/pelvis showing a 7mm left-sided obstructing kidney stone at the [facility]. She is more comfortable following multiple doses of morphine. Of note - she spontaneously passed 2 prior stones that were calcium based. She has never needed stents or lithotripsy. Principal Diagnosis 7mm left-sided obstructing kidney stone - s/p stent placement UTI Discharge Exam gen - NAD, comfortable mouth - MMM neck - no JVD heart - RRR, s1, s2, no murmur lungs - CTA b/l abd - soft NT ND BS+; no HSM; no flank tenderness b/l ext - no edema, pulses 2+ b/l psych - a/o x 3 Discharge Data Allergies Allergy/AdvReac Type Severity Reaction Status Date / Time doxycycline Allergy Unknown Nausea & Verified 03/21/22 11:28 Vomitting erythromycin base Allergy Unknown Unknown Verified 03/21/22 11:28 fexofenadine [From Erika] Allergy Unknown RAPID Verified 03/21/22 11:28 HEART RATE Fish Containing Products Allergy Unknown RASH, SOB Verified 03/21/22 11:28 WITH SEAFOOD hyoscyamine Allergy Unknown Rash,VISION Verified 03/21/22 11:28 PROBLEMS iodine Allergy Unknown RASH, SOB Verified 03/21/22 11:28 WITH CAT SCAN DYE latex Allergy Unknown RASH WITH Verified 03/21/22 11:28 BANDAIDS Penicillins Allergy Unknown A Verified 03/21/22 11:28 CHILD-RASH polymyxin B [From Polysporin] Allergy Unknown RASH Verified 03/21/22 11:28 pseudoephedrine Allergy Unknown RAPID Verified 03/21/22 11:28 [From Erika-D] HEART RATE soy Allergy Unknown STOMACH Verified 03/21/22 11:28 ACHE sulfamethoxazole Allergy Unknown RASH Verified 03/21/22 11:28 [From Bactrim] trimethoprim [From Bactrim] Allergy Unknown RASH Verified 03/21/22 11:28 bacitracin [From Polysporin] Allergy RASH Verified 03/21/22 11:28 milk AdvReac Unknown "Makes her Verified 03/21/22 11:28 sick" Consultations [facility] Procedures Performed Operation Date: 03/17/22 10:00 Actual Procedures Cystoscopy, Retrograde Pyelogram, Left Stent Insertion(Left) - Cristian Marie, Ordered Studies Retrograde Pyelogram 03/17/22 00:00 FL retrograde includes kub CLINICAL HISTORY: CYSTO COMPARISON STUDY: CT of the abdomen and pelvis performed earlier today. FLUOROSCOPY TIME: 16 seconds. FLUOROSCOPIC IMAGES: 2 FINDINGS: Fluoroscopy was provided during left retrograde exam with left ureteral stent placement. Stent is appropriately positioned. Equivocal extraluminal contrast adjacent to the proximal left ureter. IMPRESSION: Fluoroscopy provided during left retrograde exam with left ureteral stent placement. ACT 112: Negative or not required by law. Electronically signed by: Reid Iqbal M.D. 03/17/2022 10:53 AM Abdomen/Pelvis CT 03/17/22 03:19 CT OF THE ABDOMEN AND PELVIS WITHOUT CONTRAST CLINICAL HISTORY: Left flank pain. COMPARISON STUDY: Pelvic ultrasound June 15, 2020. Abdominal ultrasound June 02, 2020. Pelvis MRI April 24, 2019. TECHNIQUE: Axial images of the abdomen and pelvis were obtained without IV contrast. Images were reviewed in the axial, sagittal, and coronal planes. Automated exposure control was utilized for the study. A dose lowering technique was utilized adhering to the principles of ALARA. FINDINGS: Lung bases are unremarkable. A 7 mm left ureteropelvic junction calculus results in mild to moderate left hydronephrosis. Adjacent left renal calculi measure up to 7 mm. Stranding within the left renal sinus and adjacent to the proximal left ureter is noted. No right sided urinary calculi are present. There is no right hydronephrosis. Evaluation of the remainder of the abdomen and pelvis is suboptimal on this unenhanced exam. There is a small hiatal hernia. Liver, spleen, adrenal glands and pancreas are unremarkable. No biliary or pancreatic ductal dilatation. No evidence for a bowel obstruction. No lymphadenopathy or ascites. No acute fracture or suspicious lesion within visualized skeletal structures. IMPRESSION: 1. 7 mm left ureteropelvic junction calculus which results in mild to moderate left hydronephrosis. 2. Left-sided nephrolithiasis. ACT 112: Negative or not required by law. Electronically signed by: Reid Iqbal M.D. 03/17/2022 6:36 AM Hospital Course (1) Urinary tract obstruction by kidney stone: Left-sided, 7mm, at the [facility]. Additional nonobstructing stones in left kidney also seen on CT. [facility] was consulted on hospital day #1 and left-sided ureteral stent was placed. Post-op she was hemodynamically stable with stable creatinine. However, she had considerable stent pain and bladder symptoms requiring a combination of flomax, ditropan, pyridium, and pain meds. She will d/c home on all of the above medications. Urine culture grew group B strep - see below. She will f/u with [facility] shortly after discharge for stent management and definitive stone treatment. (2) AVNRT (AV alyssa re-entry tachycardia): history of. never has had ablation. takes metoprolol prn and has been previously instructed in use of carotid massage for episodes. telemetry showed NSR during the stay. no SVT was seen. (3) Acquired hypothyroidism: h/o thyroid cancer s/p thyroidectomy. cont synthroid. cont liothyronine. (4) Hypokalemia: repleted and resolved. mag level was wnl. (5) UTI (urinary tract infection): 2nd group B strep. Received IV cipro while hospitalized. Has multiple medication allergies including antibiotics. Thus, PO cipro will be continued for another 5 days post-discharge. Total Time Total Time Spent Total Time Spent (In Minutes): 35 Discharge Plan Discharge Items Patient Disposition: Home - Self-Care Reason For Visit: LEFT-SIDED KIDNEY STONE Discharge Diagnosis: 1. 7mm left-sided kidney stone. Ureteral stent placement by Dr Marie, [facility]. 2. Additional kidney stones in the left kidney (these are stable, not causing trouble at this time). 3. Urinary tract infection. Activity: As commented below Activity Comment: light activities only; no heavy exertional activities Lifting: No more than 10 pounds Bathing: No limitations Sexual Activity: Wait until after follow-up appointment Exercise/Sports: Wait until after follow-up appointment Driving/Machine Use: OK to drive as long as you are NOT taking narcotic pain medication Non-emergency contact: Primary Care Provider and Urologist Call non-emergency contact if: you have any medication questions, your symptoms worsen, your pain is not controlled, your pain is worsening and you have a fever Follow-up/Referrals: Cristian Marie DO [Physician] - (please call on Sunday, 03/20, to schedule outpatient lithotripsy and additional follow-up) Sabrina Thomson CRNP [Primary Care Provider] - (1-2 weeks) Diet: Regular Addtl Attending Provider Instructions: Mrs Locke, Alireza were hospitalized for a 7mm left-sided kidney stone. The stone had traveled down the ureter and was located in the ureter where it passes over your pelvis. [facility] saw you in consult and recommended a ureteral stent to help with your kidney stone pain and allow urine to flow normally from the kidney down to the bladder. Dr Cristian Marie performed cystoscopy and placed a stent on the left side. Your urine culture did grow bacteria - thus, you were treated for urinary tract infection while here. Your blood work and vital signs have been stable during your stay. Over the next few days you may have a variety of symptoms related to your stent, your bladder, or your urinary tract infection. You may see some minor, pink urine due to post-stent bleeding - this is common. You may have burning with urination, bladder spasm, or pain from the stent itself. We will prescribe medications for all of these symptoms. Next week [facility] will arrange an appointment date/time for "lithotripsy" to break the stone up. Recommendations - 1. antibiotic for your urinary tract infection - * ciprofloxacin 500mg twice daily x 5 days, first dose TONIGHT * please continue on a probiotic supplement over the next 5-7 days 2. burning with urination or bladder pain - * phenazopyridine 200mg every 8 hours as needed * this medication will make your urine orange in color - this is a normal side effect 3. bladder spasm or bladder pain - * oxybutinin 5mg up to twice daily as needed 4. stent pain, abdominal pain, bladder pain - * narcotic pain killer medication -- hydrocodone/acetaminophen 1 tablet every 6 hours as needed * this medication has tylenol in it; thus, if you use it, please avoid taking extra [id number] tylenol * this medication may make you sleepy -- if you use hydrocodone please don't drive a car or drink alcohol * this medication may make you constipated -- thus, if you use it, please take a stool softener or other constipation aid as needed 5. tamsulosin 0.4mg once daily in the morning, first dose tomorrow morning 6. drink plenty of water and/or lemonade on a daily basis. Avoid excessive amounts of caffeinated beverages including coffee, tea, and dark sodas. Water and lemonade are good for flushing out the urinary tract and also can prevent new stones from forming. Follow-up - see separate section Return to [facility] if - * you have fevers over 100 degrees * you develop severe diarrhea * you have ongoing pain that won't stop despite all of the above mentioned medications * you develop severe back and/or flank pain * you have large amounts of blood in the urine * any other concerns It was our pleasure to care for you at [facility]! Continue to feel better, Dr Garces Pending Studies at Discharge: No Stand-Alone Forms: My [facility], Smoking Cessation Medications and DC Order Prescriptions: New hydrocodone-acetaminophen 5-325 mg Tablet 1 tab PO Q6H PRN (Reason: pain) Qty: 15 0RF phenazopyridine [Pyridium] 200 mg Tablet 200 mg PO TID PRN (Reason: burning with urination/bladder pain) Qty: 20 0RF oxybutynin chloride 5 mg Tablet 5 mg PO BID PRN (Reason: bladder pain/spasm) Qty: 20 0RF ciprofloxacin HCl [Cipro] 500 mg tablet 500 mg PO BID 5 Days Qty: 10 0RF Continued albuterol sulfate 2.5 mg /3 mL (0.083 %) solution for nebulization 2.5 mg inhalation Q4H PRN (Reason: Wheezing) albuterol sulfate 90 mcg/actuation HFA aerosol inhaler 2 puff inhalation Q6H PRN (Reason: Wheezing) bupropion HCl 150 mg tablet extended release 24 hr 150 mg PO QAM epinephrine [EpiPen] 0.3 mg/0.3 mL auto-injector 0.3 mg IM Q4H PRN (Reason: Allergic Reaction) liothyronine 5 mcg tablet 5 mcg PO QAM metoprolol tartrate 25 mg tablet 25 mg PO DAILY PRN (Reason: Increased Heart Rate) levothyroxine [Synthroid] 175 mcg tablet 175 mcg PO QAM No Action tamsulosin 0.4 mg capsule 0.4 mg PO QAM PRN (Reason: Other) Rx Instructions: for your kidney stone azelastine 137 mcg (0.1 %) aerosol,spray 2 spray intranasal DAILY PRN (Reason: Nasal Congestion) acetaminophen [Tylenol Ex Str Rapid Release] 500 mg Tablet 500 mg PO Q6H PRN (Reason: Pain) Discharge Orders: Discharge Order (Routine); Ordered 03/18/22 Ordered By: Roshan Herring/Other Patient Handouts: Having a Ureteral Stent, Understanding Kidney Stones, Preventing Kidney Stones Admission Data Admit Date/Time: 03/17/22 07:35 Attending Provider: Roshan Garces Admit Provider: Roshan Garces Primary Care Provider: Sabrina Thomson Other Providers: Brennan Canales ; Jf Pritchard Other Interventions: Discharge Summary Assessment (RN) Last Done: 03/18/22 13:44 Coding Level of Care Code D/C DAY MANAGEMENT >30 MINS Diagnoses Urinary tract obstruction by kidney stone N20.0; N13.8 AVNRT (AV alyssa re-entry tachycardia) I47.1 Acquired hypothyroidism E03.9 Hypokalemia E87.6 UTI (urinary tract infection) N39.0
== END 2022-03-18 15:30 | disposition home or self-care (01) | DRG 660 ==
LOC: ED 02:58 → OR 09:42 → 2N 09:43 → OR 09:53
DX: Z79.890 Hormone replacement therapy; Z88.8 Allergy status to other drugs, medicaments and biological substances; Z91.018 Allergy to other foods; Z87.442 Personal history of urinary calculi; E87.6 Hypokalemia; Z88.0 Allergy status to penicillin; I47.1 Supraventricular tachycardia; N13.6 Pyonephrosis; B95.1 Streptococcus, group B, as the cause of diseases classified elsewhere; E89.0 Postprocedural hypothyroidism; Z91.011 Allergy to milk products; Z91.040 Latex allergy status; Z85.850 Personal history of malignant neoplasm of thyroid; Z88.2 Allergy status to sulfonamides; Z79.899 Other long term (current) drug therapy; Z91.041 Radiographic dye allergy status; Z88.1 Allergy status to other antibiotic agents